=== PATIENT | female | born 1950 | race Asian ===

== ENCOUNTER 2016-12-16 13:12 | Emergency (ER) | payer MEDICARE, OTHER ==
[2016-12-16] MEDS ORDERED: DEXAMETHASONE 10 MG/ML VIAL PO STA (14:17)
[2016-12-16] MEDS ORDERED: CHERRY SYRUP 10 ML UDC PO ONE (14:21)
[2016-12-16] MEDS ORDERED: DEXAMETHASONE 10 MG/ML VIAL ONE (14:22)
== END 2016-12-16 16:41 | disposition home or self-care (01) ==
DX: R07.81 Pleurodynia (principal); H66.003 Acute suppurative otitis media without spontaneous rupture of ear drum, bilateral
CPT/HCPCS: 36415; 71020; 80053; 83690; 84484; 85025; 93005; 93010; 99283; 99284; A9270

== ENCOUNTER 2017-02-28 12:29 | Outpatient (CLI) | payer MEDICARE, OTHER ==
--- NOTE | 2017-02-28 22:16 | MRI Report ---
EXAM: LEFT HAND MRI WITHOUT CONTRAST EXAM DATE: 02/28/2017 01:35 p.m. CLINICAL HISTORY: Pain and swelling between the fourth and fifth metacarpals. COMPARISON: None. TECHNIQUE: Multiplanar, multisequence T1-weighted and fluid-sensitive sequences of the hand without c ontrast. Other: None. FINDINGS: Bones and articular cartilage: Mild osteoarthritis at the first carpometacarpal joint. Mild to modera te osteoarthritis at the first interphalangeal joint. Mild osteoarthritis at the third through fifth PIP joints and moderate to severe osteoarthritis at the fifth DIP joint. Small effusion at the fifth DIP joint. No acute fracture or subluxations. Small synovial cyst arising from the first carpometacar pal joint. Small synovial cyst arising from the dorsal ulnar aspect of the third metacarpophalangeal joint. Ligaments: The visualized collateral ligaments are intact. Tendons: The flexor and extensor tendons are unremarkable. Musculature: No edema or fatty atrophy. Other: The subcutaneous tissues are unremarkable. IMPRESSION: 1. Osteoarthritis at the first carpometacarpal, first interphalangeal, third through fifth PIP, and f ifth DIP joints. 2. No acute fracture or bone lesions. 3. Small fifth DIP joint effusion. 4. Small synovial cyst arising from the first carpometacarpal joint and small synovial cyst arising f rom the third metacarpophalangeal joint. [facility] MUSCULOSKELETAL RADIOLOGY SECTION Referring Provider Line: [phone] SITE ID: [id number]
== END 2017-02-28 12:30 | disposition home or self-care (01) ==
LOC: DI 12:29
PROVIDERS: ATTEND Registered Nurse
DX: M18.12 Unilateral primary osteoarthritis of first carpometacarpal joint, left hand (principal); M19.042 Primary osteoarthritis, left hand; M25.442 Effusion, left hand; M71.342 Other bursal cyst, left hand

== ENCOUNTER 2017-06-11 13:02 | Outpatient (CLI) | payer MEDICARE, OTHER ==
--- NOTE | 2017-06-11 13:53 | Ultrasound Report ---
LEFT LEG VENOUS DUPLEX: 06/11/2017 CLINICAL INDICATION: Pain, swelling. TECHNIQUE: Real-time sonographic vascular imaging was performed by the [employer] inspector through the left leg utilizing both color flow and Doppler spectral analysis. Multiple financial service representative static images w ere saved for review. FINDINGS: A left lower extremity venous sonogram is performed revealing the common femoral, superfic ial femoral, profunda femoris, and popliteal veins to be adequately visualized without intraluminal d efects. There is normal venous compression, augmentation, phasicity, and spontaneity of venous flow. In the calf, the visualized more cephalad portions of posterior tibial and peroneal veins are gross ly compressible, without filling defects. No fluid collection is identified in the region of pain in the left calf. IMPRESSION: NO EVIDENCE OF DEEP VENOUS THROMBOSIS. JOB #: [id number] [id number] JOB #:[id number]
== END 2017-06-11 13:03 | disposition home or self-care (01) ==
LOC: DI 13:02
PROVIDERS: ATTEND Registered Nurse
DX: I83.892 Varicose veins of left lower extremity with other complications (principal)